=== PATIENT | female | born 1945 | race Caucasian/White ===

== ENCOUNTER → 2019-10-28 | Outpatient (CLI) | payer MEDICARE, OTHER ==
--- NOTE | 2019-10-28 18:32 | Diagnostic Imaging Report ---
INDICATION: Low back pain. Three views of the lumbar spine were obtained. FINDINGS: The alignment is normal. Diffuse spondylosis and degenerative disc disease. There is no spondylolysis or spondylolisthesis. No fractures are identified. IMPRESSION: Multilevel degenerative disc disease and lumbar spondylosis. Dictated by: Dictated on workstation # [id number]
--- NOTE | 2019-10-28 18:36 | Diagnostic Imaging Report ---
INDICATION: Left hip pain FINDINGS: Two views of the left hip were obtained. There are mild degenerative changes. No fracture or dislocation. Soft tissues are unremarkable. IMPRESSION: Mild degenerative changes, otherwise unremarkable. Dictated by: Dictated on workstation # [id number]
== END ==
LOC: RAD FS 15:18
PROVIDERS: ATTEND Family Medicine
DX: M47.816 Spondylosis without myelopathy or radiculopathy, lumbar region (principal); M51.37 Other intervertebral disc degeneration, lumbosacral region; M16.12 Unilateral primary osteoarthritis, left hip
CPT/HCPCS: 72100; 73502

== ENCOUNTER 2019-11-20 18:16 | Emergency (ER) | payer MEDICARE, OTHER ==
[2019-11-20 18:28] VITALS: BP 109/63
[2019-11-20] MEDS ORDERED: CLINDAMYCIN 150 MG (CLEOCIN) CAP PO ONE (18:45)
--- NOTE | 2019-11-20 18:49 | ED Upper Extremity ---
General Chief Complaint: Upper Extremity Stated Complaint: FINGER INJ Source: patient, family Exam Limitations: language barrier History of Present Illness Date Seen by Provider: Nov 20, 2019 Time Seen by Provider: 18:30 Initial Comments Patient is a right-handed female with history of stroke with expressive aphasia who presents with abscess to left apical thumb first noted 3 days ago after having nails trimmed one week ago. Patient has a habit of putting thumb inside of her mouth. History obtained by her . No other symptoms or complaints. Severity: mild Pain/Injury Location: left thumb Method of Injury: fell Allergies and Home Medications Allergies Coded Allergies: fosinopril (Verified Allergy, Unknown, 11/20/19) sulfamethoxazole (Verified Allergy, Unknown, 11/20/19) trimethoprim (Verified Allergy, Unknown, 11/20/19) Patient Home Medication List Home Medication List Reviewed: Yes Review of Systems Constitutional: no symptoms reported EENTM: no symptoms reported Respiratory: no symptoms reported Cardiovascular: no symptoms reported Gastrointestinal: no symptoms reported Genitourinary: no symptoms reported Skin: see HPI Psychiatric/Neurological: No Symptoms Reported Past Wbepoeh-Spsewd-Ehhkux Hx Past Med/Social Hx: Reviewed Nursing Past Med/Soc Hx Patient Social History Recent Foreign Travel: No Contact w/Someone Who Travel: No Physical Exam Vital Signs Capillary Refill : Height, Weight, BMI Height: '" Weight: lbs. oz. kg; BMI Method: General Appearance: no apparent distress Hand: swelling (small localized abscess to left thumb abutting fingernail. Skin is dyshidrotic with pus visible below the dermis. No joint involvement.) Procedures/Interventions I&D : Site: left thumb Blade Size: 11 I & D Procedure: betadine prep Progress Left thumb prepped with stab incision with # 11 blade to apex of abscess with purulent material obtained and cultured. Wound irrigated and bandaged. First dose of clindamycin given. Progress/Results/Core Measures Results/Orders My Orders Orders - BRUNA HALL DO Wound Culture (11/20/19 18:42) Clindamycin Capsule (Cleocin Capsule) (11/20/19 18:45) Departure Impression Primary Impression: Soft tissue abscess of left thumb Disposition: HOME, SELF-CARE Condition: Stable Departure-Patient Inst. Decision time for Depature: 18:48 Referrals: SELFBERTIN MD (PCP/Family) Primary Care Physician Patient Instructions: Skin Abscess Add. Discharge Instructions: Please keep wound clean and bandage. Wash with to 3 times daily and complete full course of antibiotics. Follow up with PCP in 3-5 days for wound recheck. Return to the ED sooner if signs of infection. All discharge instructions reviewed with patient and/or family. Voiced understanding. Scripts Clindamycin HCl (Clindamycin HCl) 150 Mg Capsule 300 MG PO TID, #42 CAP Prov: BRUNA HALL DO 11/20/19 BRUNA HALL DO Nov 20, 2019 18:49
[2019-11-20] MEDS ORDERED: CLIN150C17 PO (18:50)
== END 2019-11-20 19:00 | disposition home or self-care (01) ==
LOC: EDUNIT# 18:16 → ER FS 18:18
DX: L02.512 Cutaneous abscess of left hand (principal); Z88.2 Allergy status to sulfonamides; Z88.1 Allergy status to other antibiotic agents; Z88.8 Allergy status to other drugs, medicaments and biological substances
CPT/HCPCS: 87070; 87205

== ENCOUNTER → 2020-08-24 | Outpatient (CLI) | payer MEDICARE, OTHER ==
[~2020-08-24] MED LIST: CLIN150C18 PO
--- NOTE | 2020-08-24 17:30 | Diagnostic Imaging Report ---
INDICATION: Postmenopausal state. COMPARISON: None available. FINDINGS: AP Spine L1-L4: [BMD (g/cm2): 1.353] [T-Score: 1.3] [Z-Score: 3.9] [BMD Previous: na] [BMD % Change: na] LT Hip Neck: [BMD (g/cm2): 0.761] [T-Score: -2.0] [Z-Score: 0.5] LT Hip Total: [BMD (g/cm2):0.902] [T-Score:-0.8] [Z-Score: 1.6] [BMD Previous: na] [BMD % Change: na] RT Hip Neck: [BMD (g/cm2):0.774] [T-Score:-1.9] [Z-Score:0.6] RT Hip Total: [BMD (g/cm2):0.870] [T-score:-1.1] [Z-Score:1.3] [BMD Previous:na] [BMD % Change:na] *Indicates significant change from prior examination based on 95% confidence level. World Health Organization criteria for BMD interpretation classify patients as Normal (T-score at or above -1.0), Osteopenic (T-score between -1.0 and -2.5) or Osteoporotic (T-score at or below -2.5). LIMITATIONS AND MODIFICATION: None. FRACTURE RISK (FRAX SCORE): The ten year probability of (%): Major Osteoporotic Fracture: [20] Hip Fracture: [11] IMPRESSION: 1. Osteopenia (Low bone mass). 2. Baseline examination. 3. See below National Osteoporosis Foundation guidelines on when to potentially initiate pharmacologic therapy. Based on the National Osteoporosis Foundation Guidelines, pharmacologic treatment should be initiated in any of the following, unless clinical conditions suggest otherwise: * Any patient with prior fragility fracture of the hip or vertebrae. A spine fracture indicates 5X risk for subsequent spine fracture and 2X risk for subsequent hip fracture. * Osteoporosis (T-score <-2.5). * Postmenopausal women and men age 50 and older with low bone mass/osteopenia (T-score between -1.0 and -2.5) by DXA and 10-year major osteoporotic fracture greater than 20% or a 10-year probability of hip fracture greater than 3%. These fracture risks are supplied above in the FRAX score, if applicable. * Clinician judgement and/or patient preferences may indicate treatment for people with 10-year fracture probabilities above or below these levels. Dictated by: Dictated on workstation # [id number]
== END ==
LOC: RAD 13:47
PROVIDERS: ATTEND Family Medicine
DX: M85.80 Other specified disorders of bone density and structure, unspecified site (principal); Z78.0 Asymptomatic menopausal state
CPT/HCPCS: 77080

== ENCOUNTER 2021-11-04 16:34 | Emergency (ER) | payer MEDICARE, OTHER ==
[~2021-11-04] VITALS: Ht 149.8 cm; Wt 38.6 kg
[~2021-11-04 16:34] MED LIST changes: -CLIN150C18 PO; +CLIN150C20 PO
[2021-11-04 16:46] VITALS: BP 137/68
[2021-11-04] MEDS ORDERED: CEPH500T PO (16:55)
--- NOTE | 2021-11-04 16:59 | ED Upper Extremity ---
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 is noted a foul smell emanating as well. No fevers or chills. No nausea or vomiting. Patient is unable to provide history as she has baseline confusion from strokes Allergies and Home Medications Allergies Coded Allergies: fosinopril (Verified Allergy, Unknown, 11/20/19) sulfamethoxazole (Verified Allergy, Unknown, 11/20/19) trimethoprim (Verified Allergy, Unknown, 11/20/19) Patient Home Medication List Home Medication List Reviewed: Yes Clindamycin HCl (Clindamycin HCl) 150 Mg Capsule, 300 MG PO TID Prescribed by: BURNA HALL on 11/20/19 1850 Review of Systems Constitutional: no symptoms reported EENTM: no symptoms reported Respiratory: no symptoms reported Cardiovascular: no symptoms reported Gastrointestinal: no symptoms reported Genitourinary: no symptoms reported Musculoskeletal: other (Right hand wounds) Skin: no symptoms reported Psychiatric/Neurological: No Symptoms Reported Past Dzyiujd-Tcruzq-Bftyhg Hx Patient Social History Tobacco Use?: No Use of E-Cig and/or Vaping dev: No Substance use?: No Alcohol Use?: No Pt feels they are or have been: No Seasonal Allergies Seasonal Allergies: No Past Medical History Surgeries: No Respiratory: No Cardiac: Yes High Cholesterol, Hypertension Neurological: Yes Stroke Genitourinary: No Gastrointestinal: No Musculoskeletal: No Endocrine: No HEENT: No Cancer: No Psychosocial: No Integumentary: No Family Medical History Reviewed Nursing Family Hx No Pertinent Family Hx Physical Exam Vital Signs Capillary Refill : Height, Weight, BMI Height: '" Weight: lbs. oz. kg; BMI Method: General Appearance: WD/WN, no apparent distress HEENT: PERRL/EOMI, normal ENT inspection, pharynx normal Neck: non-tender, full range of motion, supple, normal inspection Cardiovascular: regular rate, rhythm, no edema, no gallop, no JVD, no murmur Respiratory: chest non-tender, lungs clear, normal breath sounds, no respiratory distress, no accessory muscle use Gastrointestinal: normal bowel sounds, non tender, soft, no organomegaly, no pulsatile mass Back: normal inspection, no CVA tenderness, no vertebral tenderness Hand: infection (There is a wound to the thenar eminence of the right hand at the area of a thumb contracture. Right at the base. There are some foul smell emanating and some local purulence. There is a wound at the MCP area of the palmar surface of the middle finger.), swelling (There is a ring on the ring finger on the right hand that is stuck from swelling in the finger. Distally neurovascularly intact.) Departure Communication (Admissions) Patient has 2 different wounds on her right hand from contractures. There is a foul smell emanating from them and they do appear slightly infected. We will gi ve her antibiotics and wound care follow-up. This will be difficult to maintain due to her chronic hand contractures putting pressure directly on these areas. She does have a ring stuck on her right ring finger and that was swollen. This was cut off. Neurovascular motor and sensory intact pre and postprocedure. She is discharged in stable condition with wound care follow-up and antibiotics. Impression Primary Impression: Open wound of right hand Qualified Codes: S61.401A - Unspecified open wound of right hand, initial encounter Disposition: 01 HOME, SELF-CARE Condition: Stable Departure-Patient Inst. Referrals: SANDRA KUMAR MD SELF,BERTIN SRIVASTAVA (PCP/Family) Primary Care Physician Patient Instructions: Wound Care ED Add. Discharge Instructions: Meme barbosa was seen in the emergency department for a wound to her right hand. This does appear infected, she will need to take the antibiotics as prescribed until they are gone. I recommend she follows up with the wound care doctor by calling to schedule an appointment. This will likely take some time to heal given her contractures in her hand. Return to the emergency department for any severe concerns fever or if her symptoms change in any way concerning to you. All discharge instructions reviewed with patient and/or family. Voiced understanding. Scripts Cephalexin (Cephalexin) 500 Mg Tablet 500 MG PO BID for 10 Days, #20 TAB Prov: GARRY TELLES DO 11/04/21 GARRY TELLES DO Nov 04, 2021 16:59
== END 2021-11-04 17:14 | disposition home or self-care (01) ==
LOC: EDUNIT# 16:34 → ER FS 16:38
DX: S61.401A Unspecified open wound of right hand, initial encounter (principal); S60.454A Superficial foreign body of right ring finger, initial encounter; M24.541 Contracture, right hand; Z88.2 Allergy status to sulfonamides; Z88.1 Allergy status to other antibiotic agents; W49.04XA Ring or other jewelry causing external constriction, initial encounter